=== PATIENT | male | born 2000 | race Asian ===

== ENCOUNTER 2022-07-15 12:01 | Emergency (ER) | payer OTHER ==
[~2022-07-15] VITALS: Ht 177.8 cm; Wt 72.6 kg
--- NOTE | 2022-07-15 12:08 | NUR ---
MD at bedside for evaluation
[2022-07-15] MEDS ORDERED: NAPR-1164 PO (12:52)
[2022-07-15 12:59] VITALS: BP 118/75
--- NOTE | 2022-07-15 12:59 | NUR ---
Patient discharged to home in stable condition. Written and verbal after care instructions given. Patient verbalizes understanding of instructions. Stressed follow up or return to ER for worsening s/s.
== END 2022-07-15 12:59 | disposition home or self-care (01) ==
LOC: ER 12:01
DX: M53.3 Sacrococcygeal disorders, not elsewhere classified (principal)
CPT/HCPCS: 72220; A4663